=== PATIENT | male | born 1955 | race African-American/Black ===

== ENCOUNTER 2021-04-11 11:11 | Inpatient (IN) | payer BC ==
[2021-04-11 12:05] LABS: BASO % 0.9 % (0-2.0); EOS % 1.4 % (0-4.5); HEMATOCRIT 44.6 % (35.4-49); LYMPH % 32.1 % (8-40); MCH 29.5 pg (25.7-33.7); MCHC 33.6 g/dl (32.0-35.9); MEAN CELL VOLUME 87.6 fl (80-96); MEAN PLT VOLUME 7.7 fl (7.5-11.1); MONO % 9.1 % (3.8-10.2); NEUT % 56.5 % (42.8-82.8); PLATELET COUNT 400 10^3/uL (134-434); RBC 5.09 M/mm3 (4.00-5.60); RDW 13.8 % (11.9-15.9); WHITE BLOOD COUNT 5.7 K/mm3 (4.0-10.0)
[2021-04-11 12:24] LABS: INR 1.02 (0.83-1.09); PROTHROMBIN TIME (PATIENT) 11.7 SEC (9.7-13.0)
[2021-04-11 12:26] LABS: CHLORIDE 102 mmol/L (98-107); SODIUM 137 mmol/L (136-145)
[2021-04-11 12:27] LABS: ACTIVATED PTT 29.8 SECONDS (25.2-36.5)
[2021-04-11 12:29] LABS: ALBUMIN 4.7 g/dl (3.4-5.0); ANION GAP 8 MMOL/L (8-16); BLOOD UREA NITROGEN 12.8 mg/dL (7-18); CALCIUM 9.9 mg/dL (8.5-10.1); CO2 27 mmol/L (21-32); GLUCOSE,RANDOM 140 mg/dL (74-106)
[2021-04-11 12:33] LABS: CREATININE 1.4 mg/dL (0.55-1.3); SGOT/AST 31 U/L (15-37); SGPT/ALT 54 U/L (13-61); TOT PROT 8.9 g/dl (6.4-8.2)
[2021-04-11 12:35] LABS: ALK PHOS 97 U/L (45-117)
[2021-04-11 12:37] LABS: N-TERMINAL BNP 110.1 pg/ml (5-125)
[2021-04-11] MEDS ORDERED: SODIUM CHLORIDE 0.9% 500 ML INFUS.BAG IV ONE (13:13)
[2021-04-11] MEDS ORDERED: LIDOCAINE HCL 1%, 10 MG/ML (20ML VIAL) ONE (14:00)
[2021-04-11 21:06] VITALS: BMI 26.2
[2021-04-11] MEDS ORDERED: PNEUMOC 13-VAL CONJ-DIP CRM/PF 0.5 ML DISP.SYRIN IM ONE (21:10)
[2021-04-11] MEDS: INSULIN SLIDING SCALE (NOVOLOG) 1 VIAL SQ SCH (21:53)
[2021-04-12] MEDS: INSULIN SLIDING SCALE (NOVOLOG) 1 VIAL SQ SCH ×4 (06:42→21:04)
[2021-04-12] MEDS: ROSUVASTATIN CA 20 MG TABLET PO SCH (10:16)
[2021-04-12] MEDS: HEPARIN NA (PORCINE) 5,000 UNITS/ML 1ML VIAL SQ SCH (21:04)
[2021-04-13] MEDS: HEPARIN NA (PORCINE) 5,000 UNITS/ML 1ML VIAL SQ SCH ×3 (05:47→21:03)
[2021-04-13] MEDS: INSULIN SLIDING SCALE (NOVOLOG) 1 VIAL SQ SCH ×4 (06:30→21:03)
[2021-04-13 08:23] LABS: WHITE BLOOD COUNT 4.7 K/mm3 (4.0-10.0)
[2021-04-13 08:24] LABS: BASO % 0.7 % (0-2.0); EOS % 1.6 % (0-4.5); HEMATOCRIT 40.5 % (35.4-49); HEMOGLOBIN 13.2 GM/dL (11.7-16.9); LYMPH % 37.1 % (8-40); MCHC 32.7 g/dl (32.0-35.9); MEAN CELL VOLUME 88.7 fl (80-96); MEAN PLT VOLUME 7.7 fl (7.5-11.1); MONO % 10.4 % (3.8-10.2); NEUT % 50.2 % (42.8-82.8); PLATELET COUNT 349 10^3/uL (134-434); RBC 4.56 M/mm3 (4.00-5.60); RDW 13.5 % (11.9-15.9)
[2021-04-13 08:51] LABS: CALCIUM 9.3 mg/dL (8.5-10.1)
[2021-04-13 08:52] LABS: BLOOD UREA NITROGEN 17.2 mg/dL (7-18); MAGNESIUM 2.2 mg/dL (1.8-2.4)
[2021-04-13 08:55] LABS: CREATININE 1.1 mg/dL (0.55-1.3); PHOSPHOROUS 4.4 mg/dL (2.5-4.9)
[2021-04-13] MEDS: ROSUVASTATIN CA 20 MG TABLET PO SCH (10:29)
[2021-04-13] MEDS: POTASSIUM CHLORIDE ORAL LIQUID 20 MEQ/15 ML PO SCH ×2 (10:30→21:03)
[2021-04-13] MEDS ORDERED: INSULIN (NOVOLOG) ASPART 100 UNITS/ML 10ML VIAL ONE (20:37)
[2021-04-14] MEDS: HEPARIN NA (PORCINE) 5,000 UNITS/ML 1ML VIAL SQ SCH ×3 (06:04→21:33)
[2021-04-14] MEDS: INSULIN SLIDING SCALE (NOVOLOG) 1 VIAL SQ SCH ×4 (06:11→21:37)
[2021-04-14] MEDS: ROSUVASTATIN CA 20 MG TABLET PO SCH (09:38)
[2021-04-14 09:58] LABS: BASO % 0.8 % (0-2.0); EOS % 1.5 % (0-4.5); HEMATOCRIT 38.3 % (35.4-49); HEMOGLOBIN 12.8 GM/dL (11.7-16.9); LYMPH % 36.9 % (8-40); MCH 29.4 pg (25.7-33.7); MCHC 33.5 g/dl (32.0-35.9); MEAN CELL VOLUME 87.8 fl (80-96); MEAN PLT VOLUME 7.9 fl (7.5-11.1); MONO % 9.7 % (3.8-10.2); NEUT % 51.1 % (42.8-82.8); PLATELET COUNT 339 10^3/uL (134-434); RBC 4.36 M/mm3 (4.00-5.60); RDW 13.4 % (11.9-15.9); WHITE BLOOD COUNT 4.6 K/mm3 (4.0-10.0)
[2021-04-14 10:20] LABS: CHLORIDE 103 mmol/L (98-107); SODIUM 136 mmol/L (136-145)
[2021-04-14 10:23] LABS: BLOOD UREA NITROGEN 19.6 mg/dL (7-18); CALCIUM 9.2 mg/dL (8.5-10.1); CO2 25 mmol/L (21-32); GLUCOSE,RANDOM 122 mg/dL (74-106); MAGNESIUM 2.1 mg/dL (1.8-2.4)
[2021-04-14 10:26] LABS: ANION GAP 9 MMOL/L (8-16); PHOSPHOROUS 4.2 mg/dL (2.5-4.9)
[2021-04-14 10:27] LABS: CREATININE 1.1 mg/dL (0.55-1.3)
[2021-04-14] MEDS: POTASSIUM CHLORIDE ORAL LIQUID 20 MEQ/15 ML PO SCH ×2 (12:11→17:16)
[2021-04-15] MEDS: HEPARIN NA (PORCINE) 5,000 UNITS/ML 1ML VIAL SQ SCH ×3 (06:19→21:06)
[2021-04-15] MEDS: INSULIN SLIDING SCALE (NOVOLOG) 1 VIAL SQ SCH ×4 (06:24→21:06)
[2021-04-15] MEDS: ROSUVASTATIN CA 20 MG TABLET PO SCH (09:43)
[2021-04-15 12:09] LABS: BASO % 1.1 % (0-2.0); EOS % 1.6 % (0-4.5); HEMATOCRIT 36.2 % (35.4-49); HEMOGLOBIN 12.3 GM/dL (11.7-16.9); LYMPH % 37.2 % (8-40); MCHC 34.1 g/dl (32.0-35.9); MEAN PLT VOLUME 7.7 fl (7.5-11.1); MONO % 13.9 % (3.8-10.2); NEUT % 46.2 % (42.8-82.8); PLATELET COUNT 341 10^3/uL (134-434); RBC 4.12 M/mm3 (4.00-5.60); RDW 13.3 % (11.9-15.9)
[2021-04-15 12:28] LABS: CALCIUM 9.2 mg/dL (8.5-10.1)
[2021-04-15 12:29] LABS: BLOOD UREA NITROGEN 18.4 mg/dL (7-18); MAGNESIUM 2.1 mg/dL (1.8-2.4)
[2021-04-15 12:31] LABS: PHOSPHOROUS 3.1 mg/dL (2.5-4.9)
[2021-04-15 12:32] LABS: CREATININE 1.2 mg/dL (0.55-1.3)
[2021-04-16] MEDS: HEPARIN NA (PORCINE) 5,000 UNITS/ML 1ML VIAL SQ SCH ×3 (05:48→21:02)
[2021-04-16] MEDS: INSULIN SLIDING SCALE (NOVOLOG) 1 VIAL SQ SCH ×4 (06:01→21:02)
[2021-04-16] MEDS: ROSUVASTATIN CA 20 MG TABLET PO SCH (09:43)
[2021-04-16 10:21] LABS: EOS % 2.3 % (0-4.5); HEMATOCRIT 39.2 % (35.4-49); HEMOGLOBIN 12.9 GM/dL (11.7-16.9); MCH 29.1 pg (25.7-33.7); MCHC 33.1 g/dl (32.0-35.9); MEAN CELL VOLUME 88.1 fl (80-96); MEAN PLT VOLUME 7.9 fl (7.5-11.1); MONO % 11.3 % (3.8-10.2); NEUT % 41.4 % (42.8-82.8); PLATELET COUNT 382 10^3/uL (134-434); RBC 4.44 M/mm3 (4.00-5.60); RDW 13.1 % (11.9-15.9); WHITE BLOOD COUNT 4.2 K/mm3 (4.0-10.0)
[2021-04-16 11:08] LABS: CALCIUM 9.6 mg/dL (8.5-10.1)
[2021-04-16 11:09] LABS: BLOOD UREA NITROGEN 15.7 mg/dL (7-18); MAGNESIUM 2.2 mg/dL (1.8-2.4)
[2021-04-16 11:12] LABS: CREATININE 1.1 mg/dL (0.55-1.3); PHOSPHOROUS 3.7 mg/dL (2.5-4.9)
[2021-04-17] MEDS: HEPARIN NA (PORCINE) 5,000 UNITS/ML 1ML VIAL SQ SCH ×2 (05:28→14:40)
[2021-04-17] MEDS: INSULIN SLIDING SCALE (NOVOLOG) 1 VIAL SQ SCH ×4 (06:00→21:50)
[2021-04-17] MEDS: ROSUVASTATIN CA 20 MG TABLET PO SCH (09:12)
[2021-04-17 11:44] LABS: BASO % 1.1 % (0-2.0); EOS % 1.6 % (0-4.5); HEMATOCRIT 41.4 % (35.4-49); HEMOGLOBIN 13.6 GM/dL (11.7-16.9); LYMPH % 39.3 % (8-40); MCH 29.6 pg (25.7-33.7); MCHC 32.8 g/dl (32.0-35.9); MEAN CELL VOLUME 90.1 fl (80-96); MEAN PLT VOLUME 7.9 fl (7.5-11.1); MONO % 13.2 % (3.8-10.2); NEUT % 44.8 % (42.8-82.8); PLATELET COUNT 406 10^3/uL (134-434); RDW 13.2 % (11.9-15.9); WHITE BLOOD COUNT 4.6 K/mm3 (4.0-10.0)
[2021-04-17 12:03] LABS: ALBUMIN 4.4 g/dl (3.4-5.0); BLOOD UREA NITROGEN 15.8 mg/dL (7-18)
[2021-04-17 12:06] LABS: CREATININE 1.3 mg/dL (0.55-1.3)
[2021-04-17 12:07] LABS: BILIRUBIN,TOTAL 0.7 mg/dL (0.2-1); TOT PROT 8.2 g/dl (6.4-8.2)
[2021-04-18] MEDS: INSULIN SLIDING SCALE (NOVOLOG) 1 VIAL SQ SCH ×4 (06:29→22:09)
[2021-04-18 09:32] LABS: BASO % 0.9 % (0-2.0); HEMATOCRIT 40.2 % (35.4-49); HEMOGLOBIN 13.1 GM/dL (11.7-16.9); LYMPH % 40.4 % (8-40); MCH 29.1 pg (25.7-33.7); MCHC 32.5 g/dl (32.0-35.9); MEAN CELL VOLUME 89.5 fl (80-96); MEAN PLT VOLUME 7.8 fl (7.5-11.1); MONO % 10.4 % (3.8-10.2); NEUT % 46.3 % (42.8-82.8); PLATELET COUNT 402 10^3/uL (134-434); RBC 4.49 M/mm3 (4.00-5.60); RDW 13.5 % (11.9-15.9); WHITE BLOOD COUNT 4.8 K/mm3 (4.0-10.0)
[2021-04-18 09:38] LABS: INR 1.08 (0.83-1.09); PROTHROMBIN TIME (PATIENT) 12.4 SEC (9.7-13.0)
[2021-04-18 09:41] LABS: ACTIVATED PTT 28.5 SECONDS (25.2-36.5)
[2021-04-18 09:59] LABS: BLOOD UREA NITROGEN 14.1 mg/dL (7-18)
[2021-04-18 10:02] LABS: CREATININE 1.3 mg/dL (0.55-1.3)
[2021-04-18] MEDS: ROSUVASTATIN CA 20 MG TABLET PO SCH (10:46)
[2021-04-18] MEDS ORDERED: LIDOCAINE HCL 1%, 10 MG/ML (20ML VIAL) ONE (10:52)
[2021-04-18] MEDS ORDERED: BUPIVACAINE HCL/PF 0.25% (2.5MG/ML) 10 ML VIAL ONE (10:53)
[2021-04-18] MEDS ORDERED: LIDOCAINE 1%/EPI 1:100000 (20 ML MULTI DOSE VIAL) ONE (10:53)
[2021-04-18] MEDS ORDERED: LIDOCAINE HCL 1%, 10 MG/ML (20ML VIAL) NR ONE (11:30)
[2021-04-18] MEDS ORDERED: LIDOCAINE 1%/EPI 1:100000 (20 ML MULTI DOSE VIAL) IJ ONE ×4 (11:37→13:55)
[2021-04-18] MEDS ORDERED: BUPIVACAINE HCL/PF 0.25% (2.5MG/ML) 10 ML VIAL IJ ONE ×4 (11:37→13:55)
[2021-04-18] MEDS ORDERED: LIDOCAINE HCL 2% JELLY (5 ML/TUBE) ONE (12:24)
[2021-04-18] MEDS ORDERED: LIDOCAINE HCL/PF 2% SDV 5ML VIAL ONE (12:24)
[2021-04-18] MEDS ORDERED: ONDANSETRON 4 MG/2 ML VIAL ONE (12:24)
[2021-04-18] MEDS ORDERED: PROPOFOL 20 ML ONE ×2 (12:26)
[2021-04-18] MEDS ORDERED: MIDAZOLAM HCL 2 MG/2 ML SINGLE DOSE VIAL ONE (13:09)
[2021-04-18] MEDS ORDERED: ceFAZolin 2 GRAM PREMIX BAG IVPB ONE (13:52)
[2021-04-18] MEDS ORDERED: ePHEDrine SULFATE 50 MG/1 ML AMPULE ONE (14:18)
[2021-04-18] MEDS ORDERED: NEOSTIGMINE METHYLSULFATE 0.5 MG/1 ML - 10 ML MDV ONE ×6 (14:24)
[2021-04-18] MEDS ORDERED: NEOSTIGMINE METHYLSULFATE 0.5 MG/ML - 10 ML MDV ONE ×2 (14:27)
[2021-04-18] MEDS ORDERED: GLYCOPYRROLATE 0.2 MG/1 ML VIAL ONE (14:33)
[2021-04-18] MEDS ORDERED: KETOROLAC TROMETHAMINE 30 MG/1 ML VIAL ONE (14:56)
[2021-04-18] MEDS ORDERED: ONDANSETRON 4 MG/2 ML VIAL IVPUSH PRN ×2 (15:38→15:40)
[2021-04-18] MEDS ORDERED: ACETAMINOPHEN 1000 MG/100 ML BAG IVPB ONE (15:39)
[2021-04-18] MEDS ORDERED: DEXAMETHASONE SOD PHOSPHATE 4 MG/1 ML VIAL IVPUSH PRN (15:40)
[2021-04-18] MEDS ORDERED: LACTATED RINGERS SOLUTION 1,000 ML IV SCH (15:45)
[2021-04-18] MEDS ORDERED: HYDROmorphone *PCA* 10MG/50ML DISP.SYRIN PCA SCH (15:45)
[2021-04-18] MEDS ORDERED: HYDROmorphone *PCA* 10MG/50ML DISP.SYRIN ONE (16:22)
[2021-04-18] MEDS ORDERED: ACETAMINOPHEN INJECTION 100 ML IVPB ONE (16:25)
[2021-04-18] MEDS ORDERED: CHLORHEXIDINE GLUCONATE 4% CLEANSER FOR DECOLONIZATION TP SCH (22:00)
[2021-04-18] MEDS ORDERED: SENNOSIDES 8.6MG TABLET (FP) PO SCH (22:00)
[2021-04-18] MEDS: MUPIROCIN 2% TOPICAL OINTMENT FOR DECOLONIZATION NS SCH (22:00)
[2021-04-18] MEDS: ACETAMINOPHEN 1000 MG/100 ML BAG IVPB SCH (22:04)
[2021-04-19] MEDS: INSULIN SLIDING SCALE (NOVOLOG) 1 VIAL SQ SCH ×4 (06:47→21:25)
[2021-04-19] MEDS: ACETAMINOPHEN 1000 MG/100 ML BAG IVPB SCH ×5 (06:47→21:22)
[2021-04-19] MEDS ORDERED: DEXAMETHASONE SOD PHOSPHATE 4 MG/1 ML VIAL IVPUSH PRN (08:01)
[2021-04-19] MEDS ORDERED: ONDANSETRON 4 MG/2 ML VIAL IVPUSH PRN (08:01)
[2021-04-19] MEDS ORDERED: LACTATED RINGERS SOLUTION 1,000 ML IV SCH (08:01)
[2021-04-19] MEDS ORDERED: HYDROmorphone *PCA* 10MG/50ML DISP.SYRIN PCA SCH (08:01)
[2021-04-19] MEDS ORDERED: oxyCODONE HCL 5 MG TABLET PO PRN (08:33)
[2021-04-19] MEDS ORDERED: HEPARIN NA (PORCINE) 5,000 UNITS/ML 1ML VIAL SQ SCH (10:00)
[2021-04-19] MEDS: MUPIROCIN 2% TOPICAL OINTMENT FOR DECOLONIZATION NS SCH ×2 (10:10→21:25)
[2021-04-19] MEDS ORDERED: amLODIPine BESYLATE 5 MG TABLET (FP) PO SCH (11:45)
[2021-04-19] MEDS: GABAPENTIN 100 MG CAPSULE PO SCH ×2 (14:10→21:21)
[2021-04-19] MEDS: ENOXAPARIN NA (PORCINE) 40 MG/0.4 ML DISP.SYRIN SQ SCH (14:45)
[2021-04-19] MEDS ORDERED: amLODIPine BESYLATE 5 MG TABLET (FP) PO ONE (15:00)
[2021-04-19] MEDS: ROSUVASTATIN CA 20 MG TABLET PO SCH (21:21)
[2021-04-19] MEDS: SENNOSIDES 8.6MG TABLET (FP) PO SCH (21:26)
[2021-04-19] MEDS ORDERED: ROSUVASTATIN CA 20 MG TABLET PO SCH (22:00)
[2021-04-20] MEDS: GABAPENTIN 100 MG CAPSULE PO SCH ×3 (06:12→21:09)
[2021-04-20] MEDS: INSULIN SLIDING SCALE (NOVOLOG) 1 VIAL SQ SCH ×4 (06:12→21:09)
[2021-04-20] MEDS: ACETAMINOPHEN 1000 MG/100 ML BAG IVPB SCH ×4 (06:23→21:07)
[2021-04-20 07:39] LABS: BASO % 1.1 % (0-2.0); EOS % 1.3 % (0-4.5); HEMATOCRIT 36.9 % (35.4-49); HEMOGLOBIN 12.2 GM/dL (11.7-16.9); LYMPH % 33.7 % (8-40); MCH 29.3 pg (25.7-33.7); MEAN CELL VOLUME 88.9 fl (80-96); MEAN PLT VOLUME 7.5 fl (7.5-11.1); MONO % 7.8 % (3.8-10.2); NEUT % 56.1 % (42.8-82.8); PLATELET COUNT 375 10^3/uL (134-434); RBC 4.15 M/mm3 (4.00-5.60); RDW 13.3 % (11.9-15.9)
[2021-04-20 08:18] LABS: ALBUMIN 3.6 g/dl (3.4-5.0); BLOOD UREA NITROGEN 11.5 mg/dL (7-18); MAGNESIUM 1.9 mg/dL (1.8-2.4)
[2021-04-20 08:19] LABS: PHOSPHOROUS 3.2 mg/dL (2.5-4.9)
[2021-04-20 08:20] LABS: BILIRUBIN,TOTAL 0.4 mg/dL (0.2-1); TOT PROT 6.7 g/dl (6.4-8.2)
[2021-04-20 08:21] LABS: CREATININE 1.1 mg/dL (0.55-1.3)
[2021-04-20] MEDS ORDERED: amLODIPine BESYLATE 10 MG TABLET (FP) PO SCH (10:00)
[2021-04-20] MEDS: ENOXAPARIN NA (PORCINE) 40 MG/0.4 ML DISP.SYRIN SQ SCH (10:18)
[2021-04-20] MEDS: MUPIROCIN 2% TOPICAL OINTMENT FOR DECOLONIZATION NS SCH ×2 (10:18→21:10)
[2021-04-20] MEDS: ROSUVASTATIN CA 20 MG TABLET PO SCH (21:09)
[2021-04-20] MEDS: SENNOSIDES 8.6MG TABLET (FP) PO SCH (21:10)
[2021-04-21] MEDS ORDERED: ONDANSETRON 4 MG/2 ML VIAL IVPUSH PRN (00:13)
[2021-04-21] MEDS ORDERED: oxyCODONE HCL 5 MG TABLET PO PRN (00:13)
[2021-04-21] MEDS ORDERED: DEXAMETHASONE SOD PHOSPHATE 4 MG/1 ML VIAL IVPUSH PRN (00:13)
[2021-04-21] MEDS: ACETAMINOPHEN 1000 MG/100 ML BAG IVPB SCH ×4 (03:09→21:30)
[2021-04-21] MEDS: GABAPENTIN 100 MG CAPSULE PO SCH ×3 (06:28→21:29)
[2021-04-21] MEDS: INSULIN SLIDING SCALE (NOVOLOG) 1 VIAL SQ SCH ×4 (07:00→21:29)
[2021-04-21 08:56] LABS: BASO % 1.8 % (0-2.0); EOS % 2.5 % (0-4.5); HEMATOCRIT 38.5 % (35.4-49); HEMOGLOBIN 12.9 GM/dL (11.7-16.9); LYMPH % 34.2 % (8-40); MCH 29.7 pg (25.7-33.7); MCHC 33.6 g/dl (32.0-35.9); MEAN CELL VOLUME 88.3 fl (80-96); MEAN PLT VOLUME 7.4 fl (7.5-11.1); MONO % 10.1 % (3.8-10.2); NEUT % 51.4 % (42.8-82.8); PLATELET COUNT 389 10^3/uL (134-434); RBC 4.35 M/mm3 (4.00-5.60); RDW 13.3 % (11.9-15.9); WHITE BLOOD COUNT 5.9 K/mm3 (4.0-10.0)
[2021-04-21 09:13] LABS: CALCIUM 9.5 mg/dL (8.5-10.1)
[2021-04-21 09:14] LABS: ALBUMIN 3.8 g/dl (3.4-5.0); BLOOD UREA NITROGEN 8.8 mg/dL (7-18)
[2021-04-21 09:17] LABS: CREATININE 1.1 mg/dL (0.55-1.3); PHOSPHOROUS 4.4 mg/dL (2.5-4.9)
[2021-04-21 09:18] LABS: TOT PROT 7.2 g/dl (6.4-8.2)
[2021-04-21 09:19] LABS: BILIRUBIN,TOTAL 0.3 mg/dL (0.2-1)
[2021-04-21] MEDS: amLODIPine BESYLATE 10 MG TABLET (FP) PO SCH (09:26)
[2021-04-21] MEDS: ENOXAPARIN NA (PORCINE) 40 MG/0.4 ML DISP.SYRIN SQ SCH ×2 (09:28→09:45)
[2021-04-21 16:09] VITALS: BP 145/86; PULSE 55; TEMP 97.9
[2021-04-21] MEDS ORDERED: ROSUVASTATIN CA 20 MG TABLET PO SCH (22:00)
[2021-04-21] MEDS ORDERED: SENNOSIDES 8.6MG TABLET (FP) PO SCH (22:00)
[2021-04-22] MEDS: ACETAMINOPHEN 1000 MG/100 ML BAG IVPB SCH ×2 (04:32→10:04)
[2021-04-22] MEDS: INSULIN SLIDING SCALE (NOVOLOG) 1 VIAL SQ SCH (06:04)
[2021-04-22] MEDS: GABAPENTIN 100 MG CAPSULE PO SCH (06:04)
[2021-04-22] MEDS: ENOXAPARIN NA (PORCINE) 40 MG/0.4 ML DISP.SYRIN SQ SCH (10:04)
[2021-04-22] MEDS: amLODIPine BESYLATE 10 MG TABLET (FP) PO SCH (10:04)
== END 2021-04-22 17:36 | disposition home or self-care (01) | DRG 165 ==
LOC: JER 11:11 → JERBED 15:01 → J6S 18:54 → JICU 04-18 19:51 → J8W 04-21 00:04
PROVIDERS: ADMIT Internal Medicine; ATTEND Internal Medicine
PROC: 0W9B30Z Drainage of Left Pleural Cavity with Drainage Device, Percutaneous Approach (ICD-10-PCS; 2021-04-11)
PROC: 0BJ08ZZ Inspection of Tracheobronchial Tree, Via Natural or Artificial Opening Endoscopic (ICD-10-PCS; 2021-04-18)
PROC: 3E0T3BZ Introduction of Anesthetic Agent into Peripheral Nerves and Plexi, Percutaneous Approach (ICD-10-PCS; 2021-04-18)
PROC: 0BBG4ZX Excision of Left Upper Lung Lobe, Percutaneous Endoscopic Approach, Diagnostic (ICD-10-PCS; principal; 2021-04-18 12:00)
PROC: 0B5P4ZZ Destruction of Left Pleura, Percutaneous Endoscopic Approach (ICD-10-PCS; 2021-04-18 12:00)
DX: J93.83 Other pneumothorax (principal); I10 Essential (primary) hypertension; E78.5 Hyperlipidemia, unspecified; E11.9 Type 2 diabetes mellitus without complications; J43.9 Emphysema, unspecified
CPT/HCPCS: 36415; 71045-TC-FY; 71250-TC; 80048; 80053; 82550; 82553; 82962; 83735; 83880; 84100; 84484; 85025; 85610; 85730; 86850; 86900; 86901; 88307-TC; 90670; 93005; 93010; 94010; 94760; 97116-GP; 97161-GP; 99285-25; C9803; J1644; U0003; U0005

== ENCOUNTER 2022-05-22 08:19 | Emergency (ER) | payer BC, OTHER ==
[2022-05-22 08:30] VITALS: BP 141/91; PULSE 69; RESP 16; BMI 26.6
== END 2022-05-22 10:05 | disposition home or self-care (01) ==
LOC: JERFT 08:19
DX: M16.11 Unilateral primary osteoarthritis, right hip (principal); M25.551 Pain in right hip
CPT/HCPCS: 72170-TC-FY; 73502-TC-RT-FY; 99283-25

== ENCOUNTER 2022-12-22 04:38 | Day surgery (SDC) | payer BC ==
[2022-11-24 15:32] VITALS: BMI 26.4
[2022-12-22] MEDS ORDERED: LIDOCAINE HCL 2% (20ML MULTI-DOSE VIAL) ONE (08:35)
[2022-12-22] MEDS ORDERED: LIDOCAINE 1%/EPI 1:100000 (50 ML MULTI DOSE VIAL) INF ONE (09:56)
[2022-12-22] MEDS ORDERED: [UNRECOGNIZED DRUG - OTHER] INF ONE (10:00)
[2022-12-22] MEDS ORDERED: LIDOCAINE HCL 2% (50ML VIAL) INF ONE (10:00)
[2022-12-22] MEDS ORDERED: ONDANSETRON 4 MG/2 ML VIAL ONE (10:45)
[2022-12-22] MEDS ORDERED: FENTANYL CITRATE/PF 50 MCG/ML VIAL ONE (10:45)
[2022-12-22] MEDS ORDERED: ceFAZolin SODIUM 1 GM VIAL ONE (10:45)
[2022-12-22] MEDS ORDERED: PROPOFOL 20 ML ONE (10:46)
[2022-12-22] MEDS ORDERED: MIDAZOLAM HCL 2 MG/2 ML SINGLE DOSE VIAL ONE (10:47)
[2022-12-22] MEDS ORDERED: SODIUM CHLORIDE 0.9% P/F 10 ML VIAL IJ ONE (10:48)
[2022-12-22] MEDS ORDERED: BUPIVACAINE LIPOSOME/PF (EXPAREL) 266 MG/20 ML VIAL ONE (10:54)
[2022-12-22] MEDS ORDERED: BUPIVACAINE HCL/PF 0.5% (5MG/ML) 10 ML VIAL ONE (10:54)
[2022-12-22] MEDS ORDERED: DEXAMETHASONE SOD PHOSPHATE 4 MG/1 ML VIAL ONE (11:27)
[2022-12-22] MEDS ORDERED: ceFAZolin SODIUM 1 GM VIAL IVPB ONE (11:35)
[2022-12-22] MEDS ORDERED: oxyCODONE HCL 5 MG TABLET PO PRN ×2 (14:02)
[2022-12-22] MEDS ORDERED: ONDANSETRON 4 MG/2 ML VIAL IVPUSH PRN (14:02)
[2022-12-22] MEDS ORDERED: LACTATED RINGERS SOLUTION 1,000 ML IV SCH (14:15)
[2022-12-22 15:06] VITALS: RESP 18; TEMP 97.7
[2022-12-22 16:37] VITALS: BP 120/63; PULSE 60
== END 2022-12-22 16:40 | disposition home or self-care (01) ==
LOC: JASU-SURG 04:38
PROVIDERS: ATTEND Podiatrist Foot & Ankle Surgery
PROC: 0SGH04Z Fusion of Right Tarsal Joint with Internal Fixation Device, Open Approach (ICD-10-PCS; 2022-12-22)
PROC: 0SGH04Z Fusion of Right Tarsal Joint with Internal Fixation Device, Open Approach (ICD-10-PCS; principal; 2022-12-22 11:00)
DX: M19.171 Post-traumatic osteoarthritis, right ankle and foot (principal); S92.001S Unspecified fracture of right calcaneus, sequela; X58.XXXS Exposure to other specified factors, sequela
CPT/HCPCS: 28725; C1713; 73630-TC-RT-FY; 76000-TC-FY; 82962; 88304-TC; 88311-TC; 94760; 97116-GP